=== PATIENT | female | born 1960 | race Caucasian/White ===

== ENCOUNTER 2020-12-01 17:54 | Emergency (ER) | payer BC ==
[2020-12-01 18:21] VITALS: BP 117/66; PULSE 83; TEMP 98.4; BMI 22.8
[2020-12-01] MEDS ORDERED: BAMLANIVIMAB 700 MG in SODIUM CHLORIDE 250 ML IVPB ONE (18:42)
== END 2020-12-01 22:16 | disposition home or self-care (01) ==
LOC: JCOVINFU 17:54 → JER 17:54
DX: U07.1 COVID-19 (principal)
CPT/HCPCS: 96374; 99284-25